=== PATIENT | female | born 1970 | race African-American/Black ===

== ENCOUNTER → 2017-01-05 | Day surgery (SDC) | payer OTHER ==
[~2017-01-05] MED LIST: LIDOCAINE 2% JELLY 5 ML TUBE ONE
== END ==
LOC: END 08:32
PROVIDERS: ATTEND Internal Medicine Gastroenterology
DX: R13.12 Dysphagia, oropharyngeal phase (principal)

== ENCOUNTER 2017-02-22 14:38 | Emergency (ER) | payer OTHER ==
[2017-02-22] MEDS ORDERED: NORMAL SALINE 1000 ML 1,000 ML IV PRN (15:27)
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
[2017-02-22 16:09] LABS: APPEARANCE,URINE CLEAR; BILIRUBIN,URINE NEGATIVE (NEGATIVE); GLUCOSE, URINE NEGATIVE (NEGATIVE); KETONES,URINE NEGATIVE (NEGATIVE); LEUKOCYTE ESTERASE,URINE NEGATIVE (NEGATIVE); NITRITE,URINE NEGATIVE (NEGATIVE); PROTEIN,URINE NEGATIVE (NEGATIVE); URINE SPECIFIC GRAVITY 1.001; UROBILINOGEN,URINE NEGATIVE mg/dL (<2.0)
[2017-02-22 17:05] LABS: ABSOLUTE BASOPHILS # (AUTO) 0.1 10^3/uL (0.0-0.2); ABSOLUTE LYMPHOCYTES (AUTO) 1.9 10^3/uL (0.5-4.7); ABSOLUTE MONOCYTES (AUTO) 0.4 10^3/uL (0.1-1.4); ABSOLUTE NEUT (AUTO) 8.7 10^3/uL (1.7-8.2); BASOPHILS % (AUTO) 0.9 % (0-2); EOSINOPHILS % (AUTO) 0.1 % (0-6); HEMATOCRIT 43.5 % (36.0-47.0); HEMOGLOBIN 13.9 g/dL (12.0-15.5); HGB HCT DIFFERENCE -1.8; LYMPHOCYTES % (AUTO) 16.9 % (13-45); MEAN CORPUSCULAR HEMOGLOBIN 26.1 pg (27.0-33.4); MEAN CORPUSCULAR VOLUME 82 fl (80-97); MONOCYTES % (AUTO) 3.5 % (3-13); RED BLOOD COUNT 5.32 10^6/uL (3.72-5.28); RED CELL DISTRIBUTION WIDTH 14.5 % (11.5-14.0); SEGMENTED NEUTROPHILS % (AUTO) 78.6 % (42-78); WHITE BLOOD COUNT 11.1 10^3/uL (4.0-10.5)
[2017-02-22 17:16] LABS: ALANINE AMINOTRANSFERASE 24 U/L (9-52); ALBUMIN 4.6 g/dL (3.5-5.0); ALKALINE PHOSPHATASE 78 U/L (38-126); ANION GAP 19 (5-19); ASPARTATE AMINO TRANSFERASE 33 U/L (14-36); BILIRUBIN,DIRECT 0.3 mg/dL (0.0-0.4); BILIRUBIN,TOTAL 0.6 mg/dL (0.2-1.3); BLOOD UREA NITROGEN 14 mg/dL (7-20); CARBON DIOXIDE 21 mmol/L (22-30); CHLORIDE 98 mmol/L (98-107); CREATININE RESULT 0.82 mg/dL (0.52-1.25); GLUCOSE 66 mg/dL (75-110); POTASSIUM 4.1 mmol/L (3.6-5.0)
[2017-02-22 18:09] VITALS: BP 108/70
--- NOTE | 2017-02-23 00:11 | EKG REPORT ---
SEVERITY:- NORMAL ECG - SINUS RHYTHM : Confirmed by: Brennen Fuentes 23-Feb-2017 00:11:08
== END 2017-02-22 17:58 | disposition home or self-care (01) ==
LOC: ER 14:38
DX: R55 Syncope and collapse (principal)
CPT/HCPCS: 93005; 99284; 96360; 36415; 85025; 80053; 81001; 84484; 93010; J7030

== ENCOUNTER → 2017-04-22 | Outpatient (CLI) | payer OTHER ==
--- NOTE | 2017-04-22 12:32 | RADIOLOGY REPORT (SQ) ---
EXAM DESCRIPTION: U/S NON-OB PELVIS W/O DOP COMPLETED DATE/TIME: 04/22/2017 10:04 am REASON FOR STUDY: OTHER CHRONIC PAIN (G89.29) G89.29 OTHER CHRONIC PAIN COMPARISON: None. TECHNIQUE: Dynamic and static grayscale images acquired of the pelvis via transabdominal approach an d recorded on PACS. Additional selected color Doppler and spectral images recorded. LIMITATIONS: None. FINDINGS: UTERUS: Post hysterectomy RIGHT OVARY: No abnormal masses. Right ovary 2.7 x 2.2 x 2.3 cm in size RIGHT OVARY DOPPLER: Normal arterial vascular flow without evidence for torsion. LEFT OVARY: No abnormal masses. Left ovary 2.5 x 2.2 x 2.3 cm in size, with 2 cm cyst present. LEFT OVARY DOPPLER: Normal arterial vascular flow without evidence for torsion. FREE FLUID: None noted. OTHER: No other significant finding. IMPRESSION: Post hysterectomy. Normal size ovaries without evidence of ovarian torsion. TECHNICAL DOCUMENTATION: JOB ID: [id number] [employer]- All Rights Reserved
== END ==
LOC: RAD 09:17
PROVIDERS: ATTEND Internal Medicine
DX: R10.2 Pelvic and perineal pain (principal); M54.5 Low back pain; G89.29 Other chronic pain; Z90.710 Acquired absence of both cervix and uterus
CPT/HCPCS: 76856

== ENCOUNTER 2020-08-06 23:49 | Emergency (ER) | payer OTHER, MEDICARE ==
--- NOTE | 2020-08-07 00:32 | ER Document Report ---
ED Medical Screen (RME) - General Chief Complaint: Chest Pain Stated Complaint: CHEST PAIN, TESTED COVID POSITIVE 10DAYS AGO Time Seen by Provider: 08/07/20 00:15 Primary Care Provider: SAL PEREZ MD [Primary Care Provider] - Follow up as needed Information source: Patient TRAVEL OUTSIDE OF THE [place] IN LAST 30 DAYS: No - HPI Patient complains to provider of: SOB, COVID+ Context: Patient presents to the ER for evaluation of shortness of breath with right- sided chest pain moving into the right shoulder that has gradually been worsening over the last several days. The patient states she is on day 14 of COVID-19. She states she is continually worsening daily. Exam General: Patient is in no acute distress. Cardiovascular: Regular rate and rhythm. Pulmonary: Lung sounds clear. The patient was greeted in triage by the midlevel. Orders have been placed and the patient is awaiting further evaluation from the physician. - Related Data Smoking: Non-smoker Frequency of alcohol use: None Drug Abuse: None Allergies/Adverse Reactions: acetaminophen [From Percocet] Adverse Reaction (Verified 08/07/20 00:14) oxycodone [From Percocet] Adverse Reaction (Verified 08/07/20 00:14) Home Medications: TYLENOL. MOTRIN. ALBUTEROL. MUCINEX Past Medical History - Social History Frequency of alcohol use: None Drug Abuse: None Renal/ Medical History: Denies: Hx Peritoneal Dialysis Past Surgical History: Reports: Hx Breast Surgery - benine cyst, Hx Hysterectomy, Hx Orthopedic Surgery Doctor's Discharge - Discharge Referrals: SAL PEREZ MD [Primary Care Provider] - Follow up as needed
[2020-08-07 00:55] LABS: ABSOLUTE LYMPHOCYTES (AUTO) 2.4 10^3/uL (0.5-4.7); ABSOLUTE MONOCYTES (AUTO) 0.3 10^3/uL (0.1-1.4); ABSOLUTE NEUT (AUTO) 3.3 10^3/uL (1.7-8.2); BASOPHILS % (AUTO) 0.3 % (0-2); EOSINOPHILS % (AUTO) 0.5 % (0-6); HEMATOCRIT 37.6 % (36.0-47.0); HEMOGLOBIN 12.6 g/dL (12.0-15.5); LYMPHOCYTES % (AUTO) 39.2 % (13-45); MEAN CORPUSCULAR HEMOGLOBIN 26.5 pg (27.0-33.4); MEAN CORPUSCULAR HGB CONC 33.4 g/dL (32.0-36.0); MEAN CORPUSCULAR VOLUME 79 fl (80-97); MONOCYTES % (AUTO) 5.3 % (3-13); PLATELET COUNT 209 10^3/uL (150-450); RED BLOOD COUNT 4.75 10^6/uL (3.72-5.28); RED CELL DISTRIBUTION WIDTH 14.3 % (11.5-14.0); SEGMENTED NEUTROPHILS % (AUTO) 54.7 % (42-78); TOTAL CELLS COUNTED % (AUTO) 100 %; WHITE BLOOD COUNT 6.1 10^3/uL (4.0-10.5)
[2020-08-07 01:09] LABS: ALKALINE PHOSPHATASE 74 U/L (38-126); ANION GAP 10 (5-19); ASPARTATE AMINO TRANSFERASE 24 U/L (14-36); BILIRUBIN,TOTAL 0.3 mg/dL (0.2-1.3); BLOOD UREA NITROGEN 9 mg/dL (7-20); CALCIUM 9.3 mg/dL (8.4-10.2); CARBON DIOXIDE 27 mmol/L (22-30); CHLORIDE 101 mmol/L (98-107); GLUCOSE 105 mg/dL (75-110); POTASSIUM 4.2 mmol/L (3.6-5.0); TOTAL PROTEIN 6.8 g/dL (6.3-8.2)
--- NOTE | 2020-08-07 01:12 | RADIOLOGY REPORT (SQ) ---
EXAM DESCRIPTION: XR CHEST 1 VIEW COMPLETED DATE/TME: 08/07/2020 00:53 CLINICAL HISTORY: sob, covid+ COMPARISON: None. FINDINGS: Single frontal radiograph view of the chest. Cardiomediastinal silhouette: Normal size and contour. Lungs: No consolidation, pneumothorax, or pleural effusion. Bones: No acute osseous abnormality. Upper abdomen: No abnormality identified. IMPRESSION: 1. No acute pulmonary process identified.
[2020-08-07 05:17] VITALS: BP 92/52
--- NOTE | 2020-08-07 05:30 | ER Document Report ---
ED General - General Chief Complaint: Chest Pain Stated Complaint: CHEST PAIN, TESTED COVID POSITIVE 10DAYS AGO Time Seen by Provider: 08/07/20 00:15 Primary Care Provider: SAL PEREZ MD [Primary Care Provider] - Follow up as needed TRAVEL OUTSIDE OF THE [place] IN LAST 30 DAYS: No - HPI Notes: Patient is a 49-year-old female who presents emergency department for evaluation of right-sided chest pain. She was diagnosed with Covid a few weeks ago. She has had fevers, anosmia, cough, only mildly productive. She has had nausea and vomiting which is resolved. She does have some intermittent diarrhea still, has not had any in the last 48 hours. She states that she was having intermittent chest pain, she was actually already evaluated for that. She states now she is having right-sided chest pain. It radiates into the shoulder and sometimes up into the neck. Is sharp. Is made worsened by coughing, moving, deep breath. She denies any walker shortness of breath. She just states that she feels like she should be getting better by now. - Related Data Allergies/Adverse Reactions: acetaminophen [From Percocet] Adverse Reaction (Verified 08/07/20 00:14) oxycodone [From Percocet] Adverse Reaction (Verified 08/07/20 00:14) Home Medications: TYLENOL. MOTRIN. ALBUTEROL. MUCINEX Past Medical History - General Information source: Patient - Social History Smoking Status: Never Smoker Frequency of alcohol use: None Drug Abuse: None Family History: Reviewed & Not Pertinent, Hypertension, Malignancy - Breast Renal/ Medical History: Denies: Hx Peritoneal Dialysis Past Surgical History: Reports: Hx Breast Surgery - benine cyst, Hx Hysterectomy, Hx Orthopedic Surgery Review of Systems - Review of Systems Constitutional: See HPI EENT: No symptoms reported Cardiovascular: See HPI Respiratory: See HPI Gastrointestinal: See HPI Genitourinary: No symptoms reported Musculoskeletal: See HPI Skin: No symptoms reported Neurological/Psychological: No symptoms reported Physical Exam - Vital signs Vitals: Temp Pulse BP Pulse Ox 97.6 F 59 L 92/52 L 100 08/07/20 05:12 08/07/20 05:12 08/07/20 05:12 08/07/20 05:12 - Notes Notes: Vital signs reviewed, please refer to chart. Head is normocephalic, atraumatic. Pupils equal round, reactive to light. Neck is supple without meningismus. Heart is regular rate and rhythm. Lungs are clear to auscultation bilaterally. Chest wall excursion is equal bilaterally. No obvious abnormality to the chest wall. Chest wall is tender to palpation, as is the muscles of the trapezius on the right, the paraspinal musculature of the cervical spine on the right. Abdomen is soft, nontender, normoactive bowel sounds throughout. Extremities without cyanosis, clubbing. Posterior calves are nontender. Peripheral pulses are equal. Skin is warm and dry. Patient is awake, alert, neurological exam is nonfocal. Course - Re-evaluation Re-evalutation: 08/07/20 05:28 Patient presents emergency department for evaluation. She has known Covid 19 infection, she has no other medical problems. Her heart rate is in the 50s. She has a negative D-dimer. I do not have a high suspicion for pulmonary embolus in this patient. Her chest wall is tender to palpation. I suspect she has chest wall pain secondary to coughing. The patient was reassured. She is 100% on room air. Her chest x-ray is unremarkable. Her blood work is unremarkable. I will send her home with muscle relaxers. She is to continue [id number] medications as needed for pain, such as Tylenol or ibuprofen. She voiced understanding. She is to return to the ED with worsening or new c oncerning symptoms of any sort. - Vital Signs Vital signs: Temp Pulse Resp BP Pulse Ox 97.6 F 59 L 92/52 L 100 08/07/20 05:12 08/07/20 05:12 08/07/20 05:12 08/07/20 05:12 - Laboratory Result Diagrams: 08/07/20 00:35 08/07/20 00:35 Laboratory results interpreted by me: 08/07/20 00:35 MCV 79 L MCH 26.5 L RDW 14.3 H Discharge - Discharge Clinical Impression: COVID-19, Chest wall pain Condition: Stable Disposition: HOME, SELF-CARE Instructions: COVID-19 Guidance for Persons Under Investigation, Chest Wall Pain ([facility]) Additional Instructions: Moist heat to the painful area. Tylenol or ibuprofen as needed for severe pain. Take Robaxin as needed for pain, watch for dizziness and drowsiness with this medication. Follow-up with your primary care provider. Return to the emergency department for worsening or new concerning symptoms of any sort. Referrals: SAL PEREZ MD [Primary Care Provider] - Follow up as needed
--- NOTE | 2020-08-07 07:21 | EKG REPORT ---
SEVERITY:- BORDERLINE ECG - SINUS RHYTHM BORDERLINE T WAVE ABNORMALITIES : Confirmed by: Linus Mattson MD 07-Aug-2020 07:20:25
== END 2020-08-07 05:56 | disposition home or self-care (01) ==
LOC: ER 23:49
DX: U07.1 COVID-19 (principal); R07.89 Other chest pain; Z88.6 Allergy status to analgesic agent
CPT/HCPCS: 36415; 71045; 80053; 84484; 85025; 85379; 93005; 93010; 99285